=== PATIENT | female | born 1980 | race Caucasian/White ===

== ENCOUNTER 2018-11-02 20:17 | Emergency (ER) | payer BC, OTHER ==
--- NOTE | 2018-11-02 21:14 | PDOC ---
*Physical Exam - Vital Signs Last Vital Signs Temp Pulse Resp BP Pulse Ox 98.0 F 99 H 18 148/96 99 11/02/18 20:52 11/02/18 20:52 11/02/18 20:52 11/02/18 20:52 11/02/18 20:52 ED Treatment Course - LABORATORY CBC & Chemistry Diagram: 11/02/18 10:03 11/02/18 10:03 Medical Decision Making - Medical Decision Making 11/02/18 21:14 Pt seen by Midlevel Provider under my direct supervision Ancillary studies reviewed I agree with plan as outlined by Midlevel Provider *DC/Admit/Observation/Transfer Diagnosis at time of Disposition: Upper abdominal pain - Discharge Dispostion Disposition: HOME Condition at time of disposition: Stable - Referrals - Patient Instructions Printed Discharge Instructions: DI for Abdominal Pain-Adult Additional Instructions: Thank you for choosing [facility]. It was a pleasure taking care of you. Your blood work here was normal. Please establish follow-up with a primary care doctor. Return to the Emergency Department if your symptoms worsen or persist, you have fever, shortness of breath, chest pain, severe abdominal pain, vomiting, black or bloody stools or walking or other concerning symptoms. - Post Discharge Activity
[2018-11-02 21:32] VITALS: BP 148/96; PULSE 99; TEMP 98; BMI 36.5
--- NOTE | 2018-11-02 21:34 | PDOC ---
History of Present Illness - General Chief Complaint: Pain, Acute Stated Complaint: ABDOMINAL AND LOW BACK PAIN Time Seen by Provider: 11/02/18 21:13 History Source: Patient Exam Limitations: No Limitations Past History - Past Medical History Allergies/Adverse Reactions: Allergies Allergy/AdvReac Type Severity Reaction Status Date / Time No Known Allergies Allergy Verified 11/02/18 20:59 - Suicide/Smoking/Psychosocial Hx Smoking History: Never smoked Have you smoked in the past 12 months: No Information on smoking cessation initiated: No Hx Alcohol Use: No Drug/Substance Use Hx: No *Physical Exam - Vital Signs Last Vital Signs Temp Pulse Resp BP Pulse Ox 98.0 F 99 H 18 148/96 99 11/02/18 20:52 11/02/18 20:52 11/02/18 20:52 11/02/18 20:52 11/02/18 20:52 - Physical Exam General Appearance: No: Apparent Distress Respiratory/Chest: positive: Lungs Clear, Normal Breath Sounds. negative: Respiratory Distress Cardiovascular: positive: Regular Rhythm, Regular Rate, S1, S2. negative: Murmur Gastrointestinal/Abdominal: positive: Normal Bowel Sounds, Soft, Other ( Negative Aviles's sign). negative: Tender, Distended, Guarding, Rebound Musculoskeletal: negative: CVA Tenderness Neurologic: positive: Fully Oriented, Alert, Normal Mood/Affect Moderate Sedation - Procedure Monitoring Vital Signs: Procedure Monitoring Vital Signs Temperature 98.0 F 11/02/18 20:52 Pulse Rate 99 H 11/02/18 20:52 Respiratory Rate 18 11/02/18 20:52 Blood Pressure 148/96 11/02/18 20:52 O2 Sat by Pulse Oximetry (%) 99 11/02/18 20:52 ED Treatment Course - LABORATORY CBC & Chemistry Diagram: 11/02/18 10:03 11/02/18 10:03 Medical Decision Making - Medical Decision Making 38 y/o F with no sig pmh presents with sharp upper abdominal pain radiating to back x 8 days. Pain is intermittent in nature and not worsened by anything in particular. Has tried using Gas X, fiber pills and Mylanta which did not help. Was able to sleep last night after taking Motrin. Has occasional nausea. Denies fever, chills, sob, cp, vomiting, diarrhea, dysuria, hematuria, black/bloody stools. Denies alcohol use, smoking or drug use. Denies prior abdominal surgeries. Upper abdominal pain radiating to back Patient states now pain has improved on its own without intervention PE unremarkable and patient appears comfortable Plan: CBC, CMP, lipase, UCG, UA 11/02/18 21:34 Labs reviewed and unremarkable Patient reassessed and still appears comfortable Return precautions discussed Stable for d/c 11/02/18 22:48 *DC/Admit/Observation/Transfer Diagnosis at time of Disposition: Upper abdominal pain - Discharge Dispostion Disposition: HOME Condition at time of disposition: Stable Decision to Admit order: No - Referrals - Patient Instructions Printed Discharge Instructions: DI for Abdominal Pain-Adult Additional Instructions: Thank you for choosing [facility]. It was a pleasure taking care of you. Your blood work here was normal. Please establish follow-up with a primary care doctor. Return to the Emergency Department if your symptoms worsen or persist, you have fever, shortness of breath, chest pain, severe abdominal pain, vomiting, black or bloody stools or walking or other concerning symptoms. - Post Discharge Activity
[2018-11-02 22:13] LABS: BASO % 0.3 % (0-2.0); HEMATOCRIT 37.7 % (32.4-45.2); LYMPH % 17.5 % (8-40); MCH 28.7 pg (25.7-33.7); MCHC 34.4 g/dl (32.0-36.0); MEAN CELL VOLUME 83.4 fl (80-96); MONO % 4.9 % (3.8-10.2); NEUT % 75.3 % (42.8-82.8); PLATELET COUNT 329 K/MM3 (134-434); RBC 4.52 M/mm3 (3.60-5.2); RDW 14.6 % (11.6-15.6); WHITE BLOOD COUNT 9.1 K/mm3 (4.0-10.0)
[2018-11-02 22:18] LABS: HCG,QUALITATIVE URINE Negative
[2018-11-02 22:23] LABS: URINE APPEARANCE CLEAR; URINE BILIRUBIN NEGATIVE (<2.0 mg/dL); URINE COLOR LTYELLOW; URINE GLUCOSE (UA) NEGATIVE (NEGATIVE); URINE KETONE NEGATIVE (NEGATIVE); URINE LEUK ESTERASE NEGATIVE (NEGATIVE); URINE NITRITE NEGATIVE (NEGATIVE); URINE PROTEIN NEGATIVE (NEGATIVE); URINE UROBILINOGEN NEGATIVE mg/dL (0.2-1.0)
[2018-11-02 22:42] LABS: ALK PHOS 80 U/L (45-117); ANION GAP 6 MMOL/L (8-16); BILIRUBIN,TOTAL 0.3 mg/dL (0.2-1); BLOOD UREA NITROGEN 7 mg/dL (7-18); CALCIUM 8.6 mg/dL (8.5-10.1); CHLORIDE 105 mmol/L (98-107); CO2 27 mmol/L (21-32); CREATININE 0.6 mg/dL (0.55-1.3); GLUCOSE,RANDOM 103 mg/dL (74-106); LIPASE 116 U/L (73-393); POTASSIUM 4.3 mmol/L (3.5-5.1); SGOT/AST 8 U/L (15-37); SGPT/ALT 19 U/L (13-61); SODIUM 138 mmol/L (136-145); TOT PROT 6.9 g/dl (6.4-8.2)
== END 2018-11-02 23:04 | disposition home or self-care (01) ==
LOC: JER 20:17
DX: R10.10 Upper abdominal pain, unspecified (principal)
CPT/HCPCS: 36415; 80053; 81003; 83690; 84703; 85025; 99282-25